=== PATIENT | male | born 1965 | race Caucasian/White ===

== ENCOUNTER 2017-08-28 07:08 | Day surgery (SDC) | payer OTHER, SELFPAY ==
[2017-08-22 16:52] VITALS: BMI 29.5
[2017-08-28] VITALS (11 sets, daily range): BP systolic 107–129; BP diastolic 70–81; PULSE 58–74; RESP 14–19; TEMP 36.3–37; O2SAT 94–99
[2017-08-28 07:45] LABS: POC Glucose,Bedside 205 mg/dL
--- NOTE | 2017-08-28 08:42 | P.PCN_ITS ---
[facility] Procedure Note Procedure Note:: Colonoscopy Procedure Report: Colonoscopy Endoscopist: Robbin Gibson II, MD Referring physician: Mckayla ROE Date of Procedure: August 28, 2017 Equipment: Olympus 180 variable stiffness pediatric colonoscope Sedation: Fentanyl 150 mg IV/ Versed 7 mg IV Indication: Mr. Levy is a 52-year-old gentleman who is for initial screening colonoscopy. He reports no abdominal pain, weight loss, change in his bowel habits or rectal bleeding. He reports no family history of colon cancer. Procedure: Prior to the procedure, a history and physical exam was performed, and patient' s medications and allergies were reviewed. The risks, benefits and alternatives of the sedation and procedure were discussed with the patient. All questions were answered and informed consent was obtained. The patient was brought to the procedure room. Patient identification and proposed procedure were verified by the physician and the nurse. The patient was placed in a left lateral decubitus position and the scope was passed under direct vision. Throughout the procedure, the patient's blood pressure, pulse, and oxygen saturations were monitored continuously. The colonoscopy was accomplished without difficulty. The patient tolerated the procedure well. Findings: On digital rectal examination there was normal rectal tone. There were no external hemorrhoids. The prostate was 2+, moderately firm but symmetric without nodules. The colonoscope was introduced through the anal canal to the rectum and advanced to the cecum. The ileocecal valve and appendiceal orifice were identified. The scope was advanced a short distance into the ileum which appeared grossly normal. The scope was then withdrawn into the colon. The cecum, ascending and transverse colon and mucosa were grossly normal. There were very mildly scattered diverticuli throughout the descending and sigmoid colon (LEFT colon). The rectum itself was normal. Upon retroflexion within the rectum there were grade 1 internal hemorrhoids. Impression: 1. Very mild left-sided diverticulosis 2. Grade 1 internal hemorrhoids 3. Firm prostate Plan: The patient will not require screening/surveillance colonoscopy again for 10 years by ACS guidelines. I would encourage fiber supplementation on a long-term daily maintenance basis.
== END 2017-08-28 09:35 | disposition home or self-care (01) ==
LOC: OUTP 07:11
PROVIDERS: PCP Physician Assistant; Visit Provider Internal Medicine Gastroenterology
PROC: 0DJD8ZZ Inspection of Lower Intestinal Tract, Via Natural or Artificial Opening Endoscopic (ICD-10-PCS; CPT 45378; principal; 2017-08-28 08:00)
DX: Z12.11 Encounter for screening for malignant neoplasm of colon (principal); K57.30 Diverticulosis of large intestine without perforation or abscess without bleeding; K64.0 First degree hemorrhoids; E11.9 Type 2 diabetes mellitus without complications
CPT/HCPCS: 45378; 82962; 99152

== ENCOUNTER 2021-04-07 12:18 | Emergency (ER) | payer MEDICAID, SELFPAY ==
[2021-04-07] VITALS (7 sets, daily range): BP systolic 121–147; BP diastolic 78–96; PULSE 89–104; RESP 16–18; TEMP 36.9–37.1; O2SAT 95–96; BMI 30.3
[2021-04-07 13:16] LABS: Basophils % 0.2 % (0.1-2.0); Eosinophils % 0.3 % (0.1-12.0); Hematocrit 38.5 % (42.0-52.0); Lymphocytes # 0.8 K/mm3 (0.7-4.5); Lymphocytes % 6.3 % (10-50); Mean Corpuscular HGB Conc 33.8 g/dL (31.8-35.4); Mean Corpuscular Hemoglobin 29.9 pg (27.0-31.2); Mean Corpuscular Volume 88.3 fl (80-94); Mean Platelet Volume 8.7 fl (7.4-10.4); Monocytes # 0.5 K/mm3 (0.1-1.0); Monocytes % 4.1 % (1.7-9.3); Neutrophils # 11.2 K/mm3 (1.8-7.8); Neutrophils % 89.2 % (37.0-80.0); Platelet Count 390 K/mm3 (142-424); Red Blood Count 4.36 M/mm3 (4.60-6.20); Red Cell Distribution Width 13.5 % (11.5-17.5); White Blood Count 12.5 K/mm3 (4.8-10.8)
[2021-04-07 13:17] LABS: Chloride 103 mmol/L (98-107); Sodium 138 mmol/L (136-145)
[2021-04-07 13:20] LABS: Alanine Aminotransferase 33 U/L (12-78); Albumin Level 3.7 g/dl (3.5-5.0); Albumin/Globulin Ratio 1.1 (1.1-1.8); Alkaline Phosphatase 63 U/L (38-126); Aspartate Amino Transferase 28 U/L (17-59); Bilirubin,Total 0.6 mg/dl (0.2-1.3); Blood Urea Nitrogen 30 mg/dl (9-20); Carbon Dioxide 22 mmol/L (22.0-30.0); Creatinine Clearance Estimated 123 mL/min (50-200); Estimated Glomerular Filt Rate 78 ml/min (>60); GFR (African American) 94 ML/MIN (>60); Globulin 3.4 g/dL (1.3-3.2); Total Protein,Serum 7.1 g/dl (6.3-8.2)
[2021-04-07 13:21] LABS: Calcium 9.1 mg/dl (8.4-10.2); Glucose 276 mg/dl (74-100)
[2021-04-07 13:22] LABS: MANUAL DIFFERENTIAL MANUAL DIFFERENTIAL (MANUAL DIFF)
[2021-04-07 13:58] LABS: Lymphocytes % 8 % (10-50); Monocytes % 3 % (2-9); Neutrophils % 89 % (42-76); Platelet Estimate Normal; RBC Morphology Normal; Total Cells Counted 100
--- NOTE | 2021-04-07 15:06 | HMH.EDGENADL ---
ED Disposition Clinical Impression: COVID-19 virus infection Disposition: Home, Self-Care Condition on Discharge: Good Additional Instructions: Zofran as needed for nausea. Drink plenty of fluids. Prescriptions: Ondansetron [Zofran 4mg ODT] 4 mg PO TIDP PRN #10 tab PRN Reason: Nausea And Vomiting Transmission Status: Pending to [facility] Referrals: Provider,Referral, [Primary Care Provider] - - Critical Care Critical Care Time: No Attestation: On 04/07/21, the high probability of a clinically significant, sudden or life threatening deterioration of the following system(s) required my full and direct attention, intervention and personal management. The time I documented below is in addition to time spent performing reported procedures but includes the following listed in this critical care notation. Medical Decision Making - [facility] Inquiry Pt receiving controlled substance: No Vital Signs: 04/07/21 12:19 04/07/21 12:30 04/07/21 13:00 Temperature 98.7 F Temperature Source Oral Pulse Rate 104 H 98 H Pulse Rate [Left Radial] 104 H Respiratory Rate 18 Blood Pressure 138/90 132/78 Blood Pressure [Right Arm] 147/96 H Blood Pressure Mean 100 92 Blood Pressure Mean [Right Arm] 113 Blood Pressure Source [Right Arm] Automatic Cuff Blood Pressure Position [Right Arm] Sitting 02 Sat by Pulse Oximetry 96 96 95 Oxygen Delivery Method Room Air 04/07/21 13:30 04/07/21 14:00 04/07/21 14:30 Temperature Temperature Source Pulse Rate 89 95 H 100 H Pulse Rate [Left Radial] Respiratory Rate 18 Blood Pressure 133/79 121/83 126/86 Blood Pressure [Right Arm] Blood Pressure Mean 94 Blood Pressure Mean [Right Arm] Blood Pressure Source [Right Arm] Blood Pressure Position [Right Arm] 02 Sat by Pulse Oximetry 96 96 96 Oxygen Delivery Method - Lab Data Lab Results 04/07/21 12:50: WBC 12.5 H, RBC 4.36 L, Hgb 13.0 L, Hct 38.5 L, MCV 88.3, MCH 29.9, MCHC 33.8, RDW 13.5, Plt Count 390, MPV 8.7, Neut % (Auto) 89.2 H, Lymph % (Auto) 6.3 L, [place] % (Auto) 4.1, Eos % (Auto) 0.3, Baso % (Auto) 0.2, Neut # (Auto) 11.2 H, Lymph # (Auto) 0.8, [place] # (Auto) 0.5, Eos # (Auto) 0.0, Baso # (Auto) 0.0, Total Counted 100, Neutrophils % (Manual) 89 H, Lymphocytes % (Manual) 8 L, Monocytes % (Manual) 3, Platelet Estimate Normal, RBC Morphology Normal 04/07/21 12:50: Sodium 138, Potassium 4.0, Chloride 103, Carbon Dioxide 22, Anion Gap 17.0 H, BUN 30 H, Creatinine 1.00, Estimated Creat Clear 123, Estimated GFR 78, Est GFR ( Amer) 94, Glucose 276 H, Calcium 9.1, Total Bilirubin 0.6, AST 28, ALT 33, Alkaline Phosphatase 63, Total Protein 7.1, Albumin 3.7, Globulin 3.4 H, Albumin/Globulin Ratio 1.1 Result diagrams: 04/07/21 12:50 04/07/21 12:50 Orders (Tests/Meds): ED MEDICATIONS Discontinued Medications Generic Name Dose Route Start Last Admin Trade Name Freq PRN Reason Stop Dose Admin Sodium Chloride 1,000 mls @ 999 mls/hr 04/07/21 12:45 04/07/21 13:16 Sod Chlor 0.9% 1000ml Bag IV 04/07/21 13:45 999 mls/hr .Q1H1M MARVIN Administration Ondansetron HCl 4 mg 04/07/21 12:53 04/07/21 13:15 Ondansetron 4mg/2ml Vial IV 04/07/21 12:54 4 mg ONCE ONE Administration ORDERS Category Date Time Status XR chest portable Stat Exams 04/07/21 14:45 Stop Req General Adult HPI - General Chief complaint: Weakness Stated complaint: covid pos Time Seen by Provider: 04/07/21 15:07 Mode of Arrival: Ambulatory Limitations: No Limitations Description of Symptoms (Recalled from ER Triage Doc. by RN): covid 19 pt that states he is feeling weak, having to gag his food down. Attempted to eat 2 bft burritos this morning and had to gag them down. Denies vomiting. Decreased urination, last urine was at 10:30am and clear. - History of Present Illness HPI narrative: The patient says that he has COVID-19 and complains of inability to eat. States t
== END 2021-04-07 16:07 | disposition home or self-care (01) ==
PROVIDERS: Emergency Provider Emergency Medicine
DX: U07.1 COVID-19 (principal); E11.9 Type 2 diabetes mellitus without complications; R01.1 Cardiac murmur, unspecified
CPT/HCPCS: 80053; 85007; 85025; 96365; 96375; 99282; J2405